=== PATIENT | female | born 1995 | race Caucasian/White ===

== ENCOUNTER 2016-03-20 09:31 | Day surgery (SDC) | payer OTHER ==
[~2016-03-20 09:31] MED LIST: LIDOCAINE 1% 20 ML VIAL (10MG/ML) FOR IV START INTRADERMA PRN
[2016-03-20 10:07] VITALS: TEMP 98.2
[2016-03-20] MEDS ORDERED: LIDOCAINE 1% 20 ML VIAL (10MG/ML) FOR IV START INTRADERMA ONE (10:14)
[2016-03-20] MEDS: LACTATED RINGERS 1,000 ML IV ONE ×2 (10:14→10:17)
[2016-03-20] MEDS ORDERED: PROPOFOL 10 MG/ML 20 ML VIAL IV ONE (10:18)
--- NOTE | 2016-03-20 10:58 | P.PCN ---
Date of Procedure: 03/20/16 Procedure(s) Performed: Procedure: 1. Esophagogastroduodenoscopy and biopsy. 2. Colonoscopy and biopsy. Preoperative diagnosis: Nausea, vomiting and diarrhea. Postoperative diagnosis: 1. Hiatal hernia with no obvious esophagitis or complicated reflux disease. 2. Mild antral gastritis. 3. Normal colon and terminal ileum. Preparation: HalfLytely prep. Sedation: Was provided by anesthesia. Brief clinical history: The patient is a 20-year-old female who is scheduled for this evaluation because of symptoms of nausea, vomiting and diarrhea. This has been going on for almost 4 years. In 2013 I performed an upper endoscopy but the colonoscopy was aborted because of extremely poor preparation. She had evidence of reflux esophagitis and H pylori infection for which she was treated at that time. This evaluation is to assess for complicated reflux disease, H. pylori infection, celiac disease, inflammatory bowel disease or other pathology. Procedure: With the patient on her left lateral decubitus position and after informed consent and adequate sedation, I passed the Olympus-GIF 160 video upper endoscope through the cricopharyngeus down the esophagus. GE junction was around 36 cm from the incisors and there was a sliding hiatal hernia measuring between 1-2 cm. The esophagus did not show any obvious esophagitis or complicated reflux disease. The endoscope was then passed into the stomach which was insufflated with air and inspected in detail including the retroflex view in the cardia. There was some mottling and erythema in the antrum but no ulcers or erosions. Pyloric channel, duodenal bulb, post bulbar area and descending duodenum appeared essentially within normal limits. Because of her symptoms, I obtained biopsies from the duodenum in addition to biopsies from the antrum and esophagus then the endoscope was withdrawn and I proceeded with the colonoscopy. Perianal area did not show any fissures or fistulas. There were no masses felt on digital rectal examination. The Olympus CFQ 160L video colonoscope was then inserted in the rectum in the usual fashion and advanced to the cecum. I intubated the ileocecal valve and examined the terminal ileum. Terminal ileum and colon appeared healthy with no edema, erythema, friability, ulceration, exudation or spontaneous bleeding. I retroflexed endoscope in the rectum before the endoscope was withdrawn. The patient tolerated the procedure well. Plan: The patient was reassured. Will await biopsy results and make additional recommendations based on her course and biopsy results.
[2016-03-20 11:07] VITALS: RESP 18
[2016-03-20 14:32] VITALS: BP 104/73; PULSE 62
== END 2016-03-20 12:31 | disposition home or self-care (01) ==
LOC: ORWHC2ENDO 09:31
DX: K29.50 Unspecified chronic gastritis without bleeding (principal); K44.9 Diaphragmatic hernia without obstruction or gangrene; R19.7 Diarrhea, unspecified
CPT/HCPCS: 81025; 88305; 88342; 45380; 43239; J2704; 99153

== ENCOUNTER 2018-07-10 07:04 | Inpatient (IN) | payer OTHER ==
[2018-07-10] MEDS ORDERED: LIDOCAINE 0.5% (PF) 5 MG/ML (50 ML SDV) SQ PRN (07:48)
[2018-07-10] MEDS ORDERED: METHYLERGONOVINE 0.2 MG/ML 1 ML AMP IM PRN (07:48)
[2018-07-10] MEDS ORDERED: TERBUTALINE 1 MG/ML VIAL SQ PRN (07:48)
[2018-07-10] MEDS ORDERED: CARBOPROST TROMETHAMINE 250 MCG/ML 1 ML AMP IM PRN (07:48)
[2018-07-10] MEDS ORDERED: OXYTOCIN 10 UNIT/ML 1 ML VIAL IM PRN (07:48)
[2018-07-10] MEDS ORDERED: OXYTOCIN 30 UNITS/500 ML NS 30 UNIT in SALINE 1 500ML.BAG IV SCH (08:00)
--- NOTE | 2018-07-10 08:01 | P.HPOB ---
History of Present Illness H&P Date: 07/10/18 Chief Complaint: My water broke this morning, clear fluid. This is a 22-year-old white female 2 para 1001 EDC 07/12/2018 at 39-5/7 weeks' gestation. Patient presents today with a history of her water breaking this morning, clear fluid, rare mild uterine contractions to follow. Fetus is been active throughout the . Past medical history is significant for stomach ulcers. Past surgical history significant for colposcopy in 2016. Current medications vitamins daily. ALLERGIES none known. Family history significant for hypertension, type 2 diabetes, myocardial infarction and benign heart murmur's. Reproductive history significant for normal spontaneous vaginal delivery 2016, 8 lbs. 2 oz. male infant, unremarkable. Social history patient is single, she has never been a smoker, she admits to marijuana use but states she has discontinued during . Urine drug screens have been positive 2. history significant for blood type A positive, rubella status immune. Urine culture, hepatitis B surface antigen, HIV testing, gonorrhea and chlamydia cultures, group B strep cultures all negative. Positive urine drug screen 2. On exam this is a pleasant white female who is 5 foot 1.75 inches, approximately 140 pounds, vital signs are stable and she is afebrile. The general physical exam is within normal limits. Chest is clear in all vargas. Extremities reveal no edema. Cervix is 3-4 cm dilated, 80% effaced, -2 station, vertex presentation. There is clear fluid noted on the perineal body. heart rate is consistent with reactive NST. Impression: 39-5/7 weeks intrauterine , spontaneous amniorrhexis, early labor. Positive UDS 2. Plan: Oxytocin per hospital protocol. Continue close maternal and surveillance. Anticipate normal spontaneous vaginal delivery. Repeat urine drug screen this morning. Review of Systems Constitutional: Reports as per HPI Past Medical History Past Medical History: No Reported History Additional Past Medical History / Comment(s): Anxiety and depression History of Any Multi-Drug Resistant Organisms: None Reported Past Surgical History: No Surgical Hx Reported Additional Past Surgical History / Comment(s): EGD, COLONOSCOPY Past Anesthesia/Blood Transfusion Reactions: No Reported Reaction Smoking Status: Never smoker - Past Family History Mother History Unknown: Yes Family Medical History: No Reported History Medications and Allergies Home Medications Medication Instructions Recorded Confirmed Type Pnv No.95/Ferrous Fum/Folic AC 1 each PO DAILY 07/10/18 07/10/18 History [ Multivitamin Tablet] Allergies Allergy/AdvReac Type Severity Reaction Status Date / Time No Known Allergies Allergy Verified 03/20/16 10:01 Exam Intake and Output 07/09/18 07/10/18 07/10/18 22:59 06:59 14:59 Other: Weight 58.967 kg See dictation under HPI please Assessment and Plan Assessment: 39-5/7 weeks intrauterine , spontaneous amniorrhexis, early labor. Plan: Oxytocin per hospital protocol. Continue close maternal and surveillance. Anticipate normal spontaneous vaginal delivery. Time with Patient: Less than 30
[2018-07-10 08:29] LABS: Basophils # (A) 0.1 k/uL (0-0.2); Basophils % (A) 1 %; Eosinophils # (A) 0.1 k/uL (0-0.7); Eosinophils % (A) 1 %; HGB 13.8 gm/dL (11.4-16.0); Lymphocytes # (A) 2.5 k/uL (1.0-4.8); Lymphocytes % (A) 28 %; MCH 28.3 pg (25.0-35.0); MCHC 33.5 g/dL (31.0-37.0); MCV 84.6 fL (80.0-100.0); Mean Platelet Volume 8.6; Monocytes # (A) 0.5 k/uL (0-1.0); Monocytes % (A) 5 %; Neutrophils # (A) 5.6 k/uL (1.3-7.7); Neutrophils % (A) 63 %; Platelet Count 261 k/uL (150-450); Poikilocytosis Slight; RBC 4.85 m/uL (3.80-5.40); RDW 14.9 % (11.5-15.5)
[2018-07-10 08:43] LABS: Amphetamine Screen,Urine Not Detected (NotDetected); Barbiturate Screen,Urine Not Detected (NotDetected); Benzodiazepines Screen,Urine Not Detected (NotDetected); Cocaine Screen,Urine Not Detected (NotDetected); Methadone Screen, Urine Not Detected (NotDetected); Opiate Screen,Urine Not Detected (NotDetected); Oxycodone Screen, Urine Not Detected (NotDetected); Phencyclidine Screen,Urine Not Detected (NotDetected); Tricyclic Antidepressant,Urine Not Detected (NotDetected); Urn Cannabinoid Scrn Not Detected (NotDetected)
[2018-07-10] MEDS: LACTATED RINGERS 1,000 ML IV SCH ×2 (08:54→10:12)
[2018-07-10 08:59] VITALS: BMI 22.3
[2018-07-10] MEDS ORDERED: fentaNYL (PF) 50 MCG/ML 5 ML AMP ONE (09:49)
[2018-07-10] MEDS ORDERED: ROPIVACAINE 5MG/ML 20ML VIAL ONE (09:49)
[2018-07-10] MEDS ORDERED: SODIUM CHLORIDE 0.9% 100 ML BAG ONE (09:49)
[2018-07-10] MEDS ORDERED: HYDROCORTISONE 2.5% RECTAL CREAM 30 GM TUBE RECTAL PRN (14:22)
[2018-07-10] MEDS ORDERED: WITCH HAZEL 1 EACH MED..PAD TOPICAL PRN (14:22)
[2018-07-10] MEDS ORDERED: SIMETHICONE 80 MG CHEWABLE PO PRN (14:22)
[2018-07-10] MEDS ORDERED: diphenhydrAMINE 25 MG CAP PO PRN (14:22)
[2018-07-10] MEDS ORDERED: diphenhydrAMINE 50 MG/ML 1 ML VIAL IVP PRN ×2 (14:22)
[2018-07-10] MEDS ORDERED: ZOLPIDEM 5 MG TAB PO PRN (14:22)
[2018-07-10] MEDS ORDERED: BENZOCAINE/MENTHOL SPRAY 1 GM/SPRAY AEROSOL TOPICAL PRN (14:22)
[2018-07-10] MEDS ORDERED: diphenhydrAMINE 50 MG CAP PO PRN (14:22)
[2018-07-10] MEDS ORDERED: diphenhydrAMINE ELIXIR 25 MG/10 ML CUP PO PRN (14:22)
[2018-07-10] MEDS ORDERED: LANOLIN CREAM 5 GM TUBE TOPICAL PRN (14:22)
--- NOTE | 2018-07-10 14:22 | P.PROBDLV ---
Vaginal Delivery Note - . Vaginal Delivery Note: This is a 22-year-old white female 2 para 1001 EDC 07/12/2018 at 39-5/7 weeks' gestation. Patient presented this morning with a complaint of fluid leakage which began at home, clear fluid leakage, at approximately 0550 hours. is essentially unremarkable, rubella status immune, group B strep cultures negative, blood type A+. Urine drug screen has come back positive for marijuana. Please see dictated history and physical for details. On admission was a fore bag that was ruptured. Fluid was clear. Cervix was 4 cm dilated, 80% effaced, vertex presentation, -2 station. Oxytocin was started and titrated per hospital protocol. Patient became uncomfortable, requested epidural and this was placed without difficulty per the staff. She progressed well through the first stage of labor and was judged to be completely dilated at 1348 hours. Perineal body was prepped and draped in usual sterile fashion. With excellent maternal expulsive efforts the infant's head delivered occiput anterior and he restituted accordingly. There was no nuchal cord noted. The right or anterior shoulder was delivered easily from underneath the pubic symphysis at which time the oropharynx, nasopharynx, and external nares were bulb suctioned on the perineal body. Patient was officially delivered of a liveborn male at 03/08/2006 hours. Umbilical cord was doubly clamped and ligated after it stopped pulsating. Infant was handed to waiting nurses for evaluation where scores of 9 and 9 at one and 5 minutes respectively were given. Placenta delivered spontaneously, it was inspected and noted to be intact with trivascular cord at 1411 hours. At this time the perineal body was redraped. Inspection of the cervix, vagina, perineum, periurethral, and perirectal areas revealed no lacerations and no defects. Fundus is firm and in the midline, symmetric and 18 week size upon completion of delivery. All sponge needle and instrument counts are correct. weighs 3580 g or 7 lbs. 14 oz. Patient is requesting circumcision for her son.
[2018-07-10] MEDS ORDERED: OXYTOCIN 20 UNITS/1000 ML NS 1,000 ML IV SCH (14:30)
[2018-07-10] MEDS: IBUPROFEN 600 MG TAB PO PRN (18:32)
[2018-07-10] MEDS: SENNOSIDES-DOCUSATE SODIUM 1 EACH TAB PO SCH (22:20)
[2018-07-10] MEDS: ACETAMINOPHEN TAB 325 MG TAB PO PRN (22:21)
[2018-07-11 00:24] VITALS: TEMP 97.9
[2018-07-11] MEDS: IBUPROFEN 600 MG TAB PO PRN ×2 (04:03→11:15)
--- NOTE | 2018-07-11 07:27 | P.DS ---
Providers Date of admission: 07/10/18 07:33 Expected date of discharge: 07/11/18 Attending physician: Nubia Elmore Primary care physician: Stated None Hospital Course: This is a 22-year-old white female 2 para 1001 EDC 07/12/2018 at 39-5/7 weeks' gestation. Patient presented yesterday with spontaneous amniorrhexis which occurred at home, clear fluid. She was in early labor, oxytocin augmentation was started and titrated per hospital protocol. Epidural was placed per her request. Labor was unremarkable, group B strep cultures negative, rubella status immune. Please see my admitting H&P for details. Patient went on to spontaneous delivery vaginally of a liveborn male infant with scores of 9 and 9 at one and 5 minutes respectively. Infant weighed 7 lbs. 14 oz. or 3580 g. She did well, no stitches were deemed necessary. Estimated blood loss 250 mL's. Please see dictated delivery note for details. This morning the patient is doing well. She is voiding, ambulating and passing flatus without difficulty. Vital signs are stable and she is afebrile. Fundus is firm and in the midline, symmetric and 18 week size. Extremities are negative for edema. Breasts are not engorged. infant is doing well, circumcision has been performed. Patient is judged to be in very good condition for discharge home. She will follow-up with me in the office in 6 weeks. I have reminded her no intercourse, tampons or douching. She will use [id number] Advil or Aleve, or ibuprofen as needed for pain. We have briefly reviewed options for contraception and we will discuss this further in the office. Continue vitamin daily. Call with any fevers shakes or chills, foul smelling or copious lochia, with the passage of large blood clots, with any pain not alleviated by [id number] products, or indeed with any difficulties or concerns. Patient Condition at Discharge: Good Plan - Discharge Summary Discharge Rx Participant: No New Discharge Prescriptions: No Action Pnv No.95/Ferrous Fum/Folic AC [ Multivitamin Tablet] 1 each PO DAILY Discharge Medication List Pnv No.95/Ferrous Fum/Folic AC [ Multivitamin Tablet] 1 each PO DAILY 07/10/18 [History] Follow up Appointment(s)/Referral(s): Nubia Elmore MD [STAFF PHYSICIAN] - 6 Weeks Discharge Disposition: HOME SELF-CARE
[2018-07-11] MEDS: ACETAMINOPHEN TAB 325 MG TAB PO PRN (08:10)
[2018-07-11] MEDS: SENNOSIDES-DOCUSATE SODIUM 1 EACH TAB PO SCH (08:11)
[2018-07-11 09:01] VITALS: BP 120/70; PULSE 65; RESP 18
[2018-07-11] MEDS ORDERED: ROPIVACAINE 100 MG, fentaNYL (PF) 200 MCG in SODIUM CHLORIDE 0.9% 76 ML EPIDURAL ONE (09:32)
== END 2018-07-11 16:00 | disposition home or self-care (01) | DRG 807 ==
LOC: FBPOP 07:04 → 4FBP 07:33
PROVIDERS: ADMIT Obstetrics & Gynecology; ATTEND Obstetrics & Gynecology
PROC: 10E0XZZ Delivery of Products of Conception, External Approach (ICD-10-PCS; principal; 2018-07-10)
PROC: 00HU33Z Insertion of Infusion Device into Spinal Canal, Percutaneous Approach (ICD-10-PCS; 2018-07-10)
PROC: 3E0R3BZ Introduction of Anesthetic Agent into Spinal Canal, Percutaneous Approach (ICD-10-PCS; 2018-07-10)
DX: O80 Encounter for full-term uncomplicated delivery (principal); Z37.0 Single live birth; Z3A.39 39 weeks gestation of pregnancy; Z87.11 Personal history of peptic ulcer disease; Z86.59 Personal history of other mental and behavioral disorders; Z82.49 Family history of ischemic heart disease and other diseases of the circulatory system; Z83.3 Family history of diabetes mellitus
CPT/HCPCS: 80306; 85025; 86850; 86900; 86901